=== PATIENT | male | born 1985 | race Caucasian/White ===

== ENCOUNTER 2020-10-19 15:33 | Emergency (ER) | payer OTHER ==
[2020-10-19] MEDS ORDERED: PREDNISONE 20MG20 MG PO (16:49)
[2021-01-04] MEDS ORDERED: PRINIVIL10 MG PO (13:14)
[2021-01-04] MEDS ORDERED: ADIPEX-P37.5 MG PO (13:14)
[2021-01-04] MEDS ORDERED: ZOLOFT100 MG PO (13:14)
[2021-01-04] MEDS ORDERED: CA ZN PO (13:15)
[2021-01-04] MEDS ORDERED: ONE-DAILY MULT1 EACH PO (13:15)
[2021-01-04] MEDS ORDERED: THEANINE PO (13:15)
[2021-01-04] MEDS ORDERED: IRON18 MG PO (13:16)
[2021-01-12] MEDS ORDERED: PERCOCET 5-3251 EACH PO (06:59)
== END 2020-10-19 18:36 | disposition home or self-care (01) ==
LOC: FER 15:33
DX: S86.211A Strain of muscle(s) and tendon(s) of anterior muscle group at lower leg level, right leg, initial encounter (principal); W19.XXXA Unspecified fall, initial encounter
CPT/HCPCS: 73564; 73590; 96372; J1100; J1885

== ENCOUNTER 2020-11-08 13:48 | Emergency (ER) | payer OTHER ==
[~2020-11-08 13:48] MED LIST: PREDNISONE 20MG20 MG PO
[2020-11-08 15:10] LABS: BASOPHIL 0.9 % (0-2); HCT 42.4 % (42.0-52.0); HGB 14.3 g/dl (13.2-18.0); LYMPHOCYTE 22.8 % (15-48); MCH 30.8 pg (25.0-31.0); MCHC 33.7 g/dL (32.0-36.0); MCV 91.4 fL (78.0-100.0); MONOCYTE 8.9 % (0-12); MPV 9.7 fL (6.0-9.5); NEUTROPHIL 65.1 % (41-80); NRBC 0; PLT 200 K/uL (150-400); RBC 4.64 M/uL (4.70-6.00); RDW 12.4 % (11.5-14.0); WBC 5.9 K/uL (4.0-10.5)
[2020-11-08 15:28] LABS: BUN/CREAT RATIO (CALC) 18.4 RATIO; CREATININE 0.87 mg/dL (0.67-1.17); POTASSIUM 3.8 mmol/L (3.5-5.1)
[2021-01-04] MEDS ORDERED: ZOLOFT100 MG PO (13:14)
[2021-01-04] MEDS ORDERED: ADIPEX-P37.5 MG PO (13:14)
[2021-01-04] MEDS ORDERED: PRINIVIL10 MG PO (13:14)
[2021-01-04] MEDS ORDERED: ONE-DAILY MULT1 EACH PO (13:15)
[2021-01-04] MEDS ORDERED: CA ZN PO (13:15)
[2021-01-04] MEDS ORDERED: THEANINE PO (13:15)
[2021-01-04] MEDS ORDERED: IRON18 MG PO (13:16)
[2021-01-12] MEDS ORDERED: PERCOCET 5-3251 EACH PO (06:59)
== END 2020-11-08 16:45 | disposition home or self-care (01) ==
LOC: FER 13:48
PROVIDERS: Emergency Medicine
DX: G43.909 Migraine, unspecified, not intractable, without status migrainosus (principal)
CPT/HCPCS: 36415; 80048; 85025; J0780; J1100; J1200; J1885; J2405; J7030

== ENCOUNTER 2020-12-29 14:02 | Emergency (ER) | payer OTHER ==
[2020-12-29] MEDS ORDERED: NAPROXEN500 MG PO (16:11)
[2020-12-29] MEDS ORDERED: BACLOFEN 10MG T10 MG PO (16:11)
[2021-01-04] MEDS ORDERED: ADIPEX-P37.5 MG PO (13:14)
[2021-01-04] MEDS ORDERED: PRINIVIL10 MG PO (13:14)
[2021-01-04] MEDS ORDERED: ZOLOFT100 MG PO (13:14)
[2021-01-04] MEDS ORDERED: CA ZN PO (13:15)
[2021-01-04] MEDS ORDERED: THEANINE PO (13:15)
[2021-01-04] MEDS ORDERED: ONE-DAILY MULT1 EACH PO (13:15)
[2021-01-04] MEDS ORDERED: IRON18 MG PO (13:16)
[2021-01-12] MEDS ORDERED: PERCOCET 5-3251 EACH PO (06:59)
== END 2020-12-29 16:44 | disposition home or self-care (01) ==
LOC: FER 14:02
DX: M54.2 Cervicalgia (principal); M54.5 Low back pain; M54.6 Pain in thoracic spine; R51.9 Headache, unspecified; R07.9 Chest pain, unspecified; V43.52XA Car driver injured in collision with other type car in traffic accident, initial encounter; Y92.410 Unspecified street and highway as the place of occurrence of the external cause
CPT/HCPCS: 70450; 72125; 96372; J1100; J1885

== ENCOUNTER 2021-01-01 19:49 | Emergency (ER) | payer OTHER ==
[~2021-01-01 19:49] MED LIST changes: +BACLOFEN 10MG T10 MG PO; +NAPROXEN500 MG PO
[2021-01-01 22:01] LABS: BASOPHIL 0.8 % (0-2); EOSINOPHIL 2.1 % (0-5); HCT 39.4 % (42.0-52.0); HGB 13.6 g/dl (13.2-18.0); MCH 30.9 pg (25.0-31.0); MCHC 34.5 g/dL (32.0-36.0); MCV 89.5 fL (78.0-100.0); MONOCYTE 6.7 % (0-12); MPV 10.5 fL (6.0-9.5); NEUTROPHIL 59.9 % (41-80); NRBC 0; PLT 188 K/uL (150-400); RDW 12.7 % (11.5-14.0); WBC 8.3 K/uL (4.0-10.5)
[2021-01-01 22:02] LABS: BILIRUBIN NEGATIVE (NEGATIVE); BLOOD NEGATIVE Ery/uL (NEGATIVE); CLARITY CLEAR (CLEAR); COLOR YELLOW (YELLOW); GLUCOSE (U) NORMAL (NORMAL); LEUKOCYTES NEGATIVE Leu/uL (NEGATIVE); NITRITE NEGATIVE (NEGATIVE); PROTEIN NEGATIVE (NEGATIVE); SPECIFIC GRAVITY 1.025 (1.001-1.030); UROBILINOGEN 0.2 mg/dL (0.2-1.0); pH 6.5 (5.0-9.0)
[2021-01-01 22:14] LABS: AMPHETAMINES NEGATIVE (NEGATIVE); BARBITURATES NEGATIVE (NEGATIVE); ECSTASY (MDMA) NEGATIVE (NEGATIVE); MARIJUANA (THC) POSITIVE (NEGATIVE); METHADONE NEGATIVE (NEGATIVE); OPIATES NEGATIVE (NEGATIVE); OXYCODONE NEGATIVE (NEGATIVE)
[2021-01-01 22:16] LABS: BUN/CREAT RATIO (CALC) 28.2 RATIO; CREATININE 0.85 mg/dL (0.67-1.17); POTASSIUM 4.3 mmol/L (3.5-5.1)
[2021-01-04] MEDS ORDERED: ADIPEX-P37.5 MG PO (13:14)
[2021-01-04] MEDS ORDERED: PRINIVIL10 MG PO (13:14)
[2021-01-04] MEDS ORDERED: ZOLOFT100 MG PO (13:14)
[2021-01-04] MEDS ORDERED: THEANINE PO (13:15)
[2021-01-04] MEDS ORDERED: ONE-DAILY MULT1 EACH PO (13:15)
[2021-01-04] MEDS ORDERED: CA ZN PO (13:15)
[2021-01-04] MEDS ORDERED: IRON18 MG PO (13:16)
[2021-01-12] MEDS ORDERED: PERCOCET 5-3251 EACH PO (06:59)
== END 2021-01-02 01:54 | disposition home or self-care (01) ==
LOC: FER 19:49
PROVIDERS: Nurse Practitioner Family
DX: S13.4XXA Sprain of ligaments of cervical spine, initial encounter (principal); R51.9 Headache, unspecified; H53.8 Other visual disturbances; R11.2 Nausea with vomiting, unspecified; V49.60XA Unspecified car occupant injured in collision with unspecified motor vehicles in traffic accident, initial encounter; Y92.410 Unspecified street and highway as the place of occurrence of the external cause
CPT/HCPCS: 36415; 70450; 80048; 80305; 81003; 85025; J1170; J2405; J7030; Q9967

== ENCOUNTER → 2021-01-12 | Day surgery (SDC) | payer OTHER ==
[~2021-01-12] VITALS: Ht 190.5 cm; Wt 170.1 kg
[~2021-01-12] MED LIST changes: +ADIPEX-P37.5 MG PO; +CA ZN PO; +IRON18 MG PO; +ONE-DAILY MULT1 EACH PO; +PERCOCET 5-3251 EACH PO; +PRINIVIL10 MG PO; +THEANINE PO; +ZOLOFT100 MG PO
[2021-01-12 06:33] LABS: HCT 35.7 % (42.0-52.0); HGB 12.4 g/dl (13.2-18.0); MCH 31.4 pg (25.0-31.0); MCHC 34.7 g/dL (32.0-36.0); MCV 90.4 fL (78.0-100.0); MPV 10.1 fL (6.0-9.5); RBC 3.95 M/uL (4.70-6.00); RDW 12.7 % (11.5-14.0); WBC 6.6 K/uL (4.0-10.5)
[2021-01-12 07:41] LABS: ALBUMIN 3.4 g/dL (3.4-5.0); BILIRUBIN - TOTAL 0.5 mg/dL (0.2-1.0); CREATININE 0.82 mg/dL (0.67-1.17); GLOBULIN (CALCULATION) 3.2 g/dL; POTASSIUM 3.8 mmol/L (3.5-5.1); TOTAL PROTEIN 6.6 g/dL (6.4-8.2)
== END | disposition home or self-care (01) ==
LOC: FAS 05:54
PROVIDERS: Orthopaedic Surgery
DX: M25.861 Other specified joint disorders, right knee (principal); M17.11 Unilateral primary osteoarthritis, right knee; F41.9 Anxiety disorder, unspecified; F32.9 Major depressive disorder, single episode, unspecified; I10 Essential (primary) hypertension; G47.30 Sleep apnea, unspecified; Z99.89 Dependence on other enabling machines and devices; Z98.84 Bariatric surgery status; Z79.899 Other long term (current) drug therapy
CPT/HCPCS: 36415; 80053; 93005; J1100; J1170; J1885; J2250; J2405; J2704; J3010; J7120; U0002

== ENCOUNTER 2021-04-05 18:11 | Emergency (ER) | payer OTHER ==
[2021-04-05 21:08] LABS: BILIRUBIN NEGATIVE (NEGATIVE); BLOOD NEGATIVE Ery/uL (NEGATIVE); CLARITY CLEAR (CLEAR); COLOR YELLOW (YELLOW); GLUCOSE (U) NORMAL (NORMAL); LEUKOCYTES NEGATIVE Leu/uL (NEGATIVE); NITRITE NEGATIVE (NEGATIVE); PROTEIN NEGATIVE (NEGATIVE); SPECIFIC GRAVITY 1.025 (1.001-1.030); UROBILINOGEN 0.2 mg/dL (0.2-1.0)
[2021-04-05 21:09] LABS: BASOPHIL 0.5 % (0-2); EOSINOPHIL 1.9 % (0-5); HCT 43.9 % (42.0-52.0); HGB 14.6 g/dl (13.2-18.0); LYMPHOCYTE 11.5 % (15-48); MCHC 33.3 g/dL (32.0-36.0); MCV 90.3 fL (78.0-100.0); MONOCYTE 5.6 % (0-12); MPV 10.7 fL (6.0-9.5); NEUTROPHIL 80.2 % (41-80); NRBC 0; PLT 233 K/uL (150-400); RBC 4.86 M/uL (4.70-6.00); RDW 12.7 % (11.5-14.0); WBC 11.2 K/uL (4.0-10.5)
[2021-04-05 21:20] LABS: ALBUMIN 3.8 g/dL (3.4-5.0); BILIRUBIN - TOTAL 0.6 mg/dL (0.2-1.0); BUN/CREAT RATIO (CALC) 20.9 RATIO; CREATININE 0.86 mg/dL (0.67-1.17); GLOBULIN (CALCULATION) 3.7 g/dL; TOTAL PROTEIN 7.5 g/dL (6.4-8.2)
[2021-04-05] MEDS ORDERED: BENTYL10 MG PO (22:37)
[2021-04-05] MEDS ORDERED: PROTONIX 40MG T40 MG PO (22:37)
[2021-04-05] MEDS ORDERED: ZOFRAN4 M1 PO (22:37)
== END 2021-04-05 23:00 | disposition home or self-care (01) ==
LOC: FER 18:11
PROVIDERS: Emergency Medicine
DX: R10.12 Left upper quadrant pain (principal); R11.2 Nausea with vomiting, unspecified; R19.7 Diarrhea, unspecified; Z98.84 Bariatric surgery status; Z20.822 Contact with and (suspected) exposure to COVID-19
CPT/HCPCS: 36415; 80053; 81003; 83605; 83690; 84145; 84484; 85025; J1170; J2405; J7030; Q9967; U0002